=== PATIENT | female | born 1985 | race Caucasian/White ===

== ENCOUNTER 2023-04-11 14:00 | Emergency (ER) | payer OTHER ==
[~2023-04-11] VITALS: Ht 170.2 cm; Wt 63.6 kg
[2023-04-11 14:10] VITALS: TEMP 98.8
[2023-04-11 17:21] LABS: BASO # 0.1 K/mm3 (0.0-0.2); EOS # 0.1 K/mm3 (0.0-0.7); EOS % 1.9 % (0.0-4.0); GRAN # 3.4 K/mm3 (1.4-6.5); GRAN % 54.6 % (42.2-75.2); HEMATOCRIT 36.7 % (37.0-47.0); HEMOGLOBIN 12.5 g/dl (12.5-16.0); LYMPH # 2.2 K/mm3 (1.2-3.4); LYMPH % 35.4 % (20.0-51.0); MEAN CELL VOLUME 99 fl (80.0-100.0); MEAN CORPUSCULAR HEMOGLOBIN 34 pg (27-31); MEAN CORPUSCULAR HGB CONC 34 g/dl (33.0-37.0); MEAN PLATELET VOLUME 9.5 fl (7.4-10.4); MONO # 0.4 K/mm3 (0.1-0.6); MONO % 6.9 % (1.7-9.3); PLATELET COUNT 265 K/mm3 (130-400); RED BLOOD COUNT 3.71 M/mm3 (4.10-5.30); REDCELL DISTRIBUTION WIDTH-CV 12.2 % (11.5-14.5)
[2023-04-11 18:21] VITALS: BP 113/78; PULSE 72
== END 2023-04-11 18:21 | disposition home or self-care (01) ==
LOC: COL.ER 14:00
PROVIDERS: Personal Emergency Response Attendant
DX: N93.9 Abnormal uterine and vaginal bleeding, unspecified (principal)